=== PATIENT | male | born 1970 | race Caucasian/White ===

== ENCOUNTER 2021-06-04 13:21 | Emergency (ER) | payer BC ==
[~2021-06-04] VITALS: Ht 182.9 cm; Wt 99.8 kg
[2021-06-04] MEDS ORDERED: ACET-2154 PO (13:26)
--- NOTE | 2021-06-04 13:30 | NUR ---
Dr Torres at the bedside for MSE.
[2021-06-04] MEDS ORDERED: NAPR-1164 PO (13:38)
[2021-06-04 14:38] LABS: *BILIRUBIN,URIN NEGATIVE (NEGATIVE); *BLOOD, URINE TRACE (NEGATIVE); *CLARITY,URINE CLEAR (CLEAR); *COLOR,URINE YELLOW (YELLOW); *KETONES,URINE NEGATIVE (NEGATIVE); *UROBILINOGEN,URINE 0.2 E.U./dl (NORMAL); LEUKOCYTE ESTERASE ,URINE NEGATIVE (NEGATIVE); NITRITE, URINE NEGATIVE (NEGATIVE); UGLUCOSE NEGATIVE (NEGATIVE)
[2021-06-04 14:44] LABS: BACTERIA,URINE NONE SEEN /HPF (NONE SEEN); SQUAMOUS EPITHELIAL CELL,UR FEW /HPF (NONE SEEN); WBC,URINE 0-3 /HPF (0-3)
[2021-06-04 14:52] LABS: HEMATOCRIT 43.8 % (36.7-47.1); MEAN CORPUSCULAR HEMOGLOBIN 32.6 uug (23.8-33.4); MEAN CORPUSCULAR VOLUME 92.4 fL (73.0-96.2); PLATELET COUNT (AUTO) 233 K/uL (152-348)
[2021-06-04 15:07] LABS: CREATININE 0.9 mg/dL (0.6-1.3); POTASSIUM 3.8 mmol/L (3.5-5.1)
[2021-06-04 15:10] LABS: BILIRUBIN,DIRECT 0.1 mg/dL (0.0-0.2); BILIRUBIN,TOTAL 0.4 mg/dL (0.2-1.0); TOTAL PROTEIN, SERUM 7.7 g/dL (6.4-8.2)
[2021-06-04] MEDS ORDERED: NA P133E RC (15:48)
[2021-06-04] MEDS ORDERED: TAMS-3 PO (15:48)
[2021-06-04] MEDS ORDERED: POLY17PO4 PO (15:48)
[2021-06-04 16:12] VITALS: BP 120/78
== END 2021-06-04 16:13 | disposition home or self-care (01) ==
LOC: ER 13:21
DX: R33.9 Retention of urine, unspecified (principal); K59.00 Constipation, unspecified; E78.5 Hyperlipidemia, unspecified
CPT/HCPCS: 36415; 83690; 85025; A4663